=== PATIENT | female | born 1945 | race Hispanic/Latino ===

== ENCOUNTER → 2017-06-02 | Day surgery (SDC) | payer MEDICARE ==
[2017-05-31 09:53] LABS: BASOPHILS # (AUTO) 0.1 (0.0-0.1); BASOPHILS % 0.7 % (0.0-1.0); EOSINOPHILS # (AUTO) 0.1 (0.0-0.4); EOSINOPHILS % 1.3 % (0.0-6.0); HEMATOCRIT 41.3 % (34.2-44.1); HEMOGLOBIN 14.1 g/dL (12.0-16.0); LYMPHOCYTES # (AUTO) 1.3 (1.0-3.2); LYMPHOCYTES % 18.2 % (18.0-39.1); MEAN CORPUSCULAR HEMOGLOBIN 30.9 pg (28-32); MEAN CORPUSCULAR HGB CONC 34.1 g/dL (31-35); MEAN CORPUSCULAR VOLUME 90.4 fL (81-99); MONOCYTES # (AUTO) 0.5 (0.2-0.8); MONOCYTES % 7.5 % (4.4-11.3); NEUTROPHILS # (AUTO) 5.1 (2.1-6.9); NEUTROPHILS % 71.9 % (38.7-80.0); PLATELET COUNT 202 x10e3/uL (140-360); RED BLOOD COUNT 4.57 x10e6/uL (3.6-5.1); RED CELL DISTRIBUTION WIDTH 13.2 % (11.7-14.4)
--- NOTE | 2017-05-31 10:34 | Diagnostic Imaging Report ---
PROCEDURE: X-RAY CHEST, TWO VIEWS COMPARISON: None. INDICATIONS: PRE-OP CARPAL TUNNEL SURGERY FINDINGS: LUNGS: No consolidations or edema. PLEURA: No effusions or pneumothorax. HEART \T\ MEDIASTINUM: The heart is within normal size-limits. Tortuosity of the thoracic aorta. BONES \T\ SOFT TISSUES: No acute findings. Mild degenerative changes of the spine. CONCLUSION: No acute thoracic abnormality. Isaias Gaytan D.O. Dictated by: Isaias Gaytan D.O. on 05/31/2017 at 10:33 Electronically approved by: Isaias Gaytan D.O. on 05/31/2017 at 10:33
[~2017-06-02] MED LIST: ALENDRONATE SOD70 MG PO; BUPIVACAINE HCL 0.5% 10ML MPF VIAL INJ ONE; CEFAZOLIN SOD 1 GM VIAL ONE; CETIRIZINE HCL10 MG PO; DEXAMETHASONE SOD PHOS INJ 4 MG/ML VIAL ONE; FENTANYL CITRATE/PF 100MCG/2 ML INJ ONE; FISH OIL300 MG PO; KETOROLAC TROMETHAMINE 30 MG/ML VIAL ONE; LIDOCAINE HCL 0.5% LOCAL INJ 50 ML VIAL INJ ONE; LIDOCAINE HCL 2% LOCAL INJ 5 ML SDV VIAL INJ ONE; LIDOCAINE HCL-PF 4% 40 MG/1 ML 5ML AMP ONE; MIDAZOLAM HCL 2 MG/2 ML VIAL ONE; MONTELUKAST SOD10 MG PO; OMEPRAZOLE40 MG PO; ONDANSETRON HCL INJ 2 MG/ML VIAL ONE; PROPOFOL IV EMULSION 10 MG/ML 20 ML VIAL ONE; SEVOFLURANE INHAL SOLN 250 ML PEN BTL ONE; SIMVASTATIN40 MG PO; TRAZODONE HCL50 MG PO; VITAMIN D400 UNIT PO
--- OUTSIDE RECORDS SUMMARY | 2017-06-02 09:09 | XMS REPORT ---
Author Author [facility] Address Unknown Phone Unavailable Care Team Providers Care Corporate Travel Coordinator Name Role Phone JORGITO SAMPSON Unavailable Unavailable Problems This patient has no known problems. Allergies, Adverse Reactions, Alerts This patient has no known allergies or adverse reactions. Medications This patient has no known medications. Results Test Description Test Time Test Comments Text Results Atomic Results Result Comments CHEST 2 VIEWS [place] [address] Patient Name: YADI PIMENTEL MR #: [id number] : 1945 Age/Sex: 71/F Req #: [id number] Adm Physician: Ordered by: JORGITO SAMPSON MD Report #: [id number] Location: OR Room/Bed: Procedure: 0219- [id number] DX/CHEST 2 VIEWS Exam Date: 05/31/17 Exam Time : 1010 REPORT STATUS: Signed PROCEDURE: X-RAY CHEST, TWO VIEWS COMPARISON: None. INDICATIONS: PRE-OP CARPAL TUNNEL SURGERY FINDINGS: LUNGS: No consolidations or edema. PLEURA: No effusions or pneumothorax. HEART T MEDIASTINUM: The heart is within normal size- limits. Tortuosity of the thoracic aorta. BONES T SOFT TISSUES: No acute findings. Mild degenerative changes of the spine. CONCLUSION: No acute thoracic abnormality. Marline Gaytan D.O. Dictated by: Marline Gaytan D.O. on 05/31/2017 at 10:33 Electronically approved by: Marline Gaytan D.O. on 05/31/2017 at 10:33 Dictated By: MARLINE GAYTAN DO [id number] Transcribed By: YONY on 05/31/17 1033 COPY TO: JORGITO SAMPSON MD
--- NOTE | 2017-06-02 20:03 | Operative Report ---
DATE OF PROCEDURE: June 02, 2017 PREOPERATIVE DIAGNOSIS: Right carpal tunnel syndrome. POSTOPERATIVE DIAGNOSIS: Right carpal tunnel syndrome. OPERATION/PROCEDURE PERFORMED: Right carpal tunnel release. [employer] ST[employer] ASSOCIATE: None. ANESTHESIA: General endotracheal intubation anesthesia. IV FLUIDS: Per the anesthesia record. BRIEF DESCRIPTION OF THE PATIENT'S OPERATIVE PROCEDURE: Ms. Rodriguez is taken to the operating room and placed in the supine position on the operating table. Following induction of general anesthesia as well as endotracheal intubation, the patient's right upper extremity was examined under anesthesia. She was found to have a normal appearing wrist and hand. The patient's upper extremity was prepped and draped in standard surgical fashion. Case was begun by creating incision along the thenar palmar crease. This incision was carried through skin only. Blunt dissection was used to deepen the incision through the palmar fascia to the level of transverse carpal ligament. The distal edge of transverse carpal ligament was identified and hemostat was placed beneath the ligament. The ligament was then divided in line with the skin incision. The floor of carpal canal was evaluated and there were no abnormalities. The wound was copiously irrigated. The tourniquet was deflated and hemostasis was obtained. The wound was then closed in single layer fashion. Sterile dressings were applied and the patient was then awakened and taken to the post anesthesia care unit in stable condition. Job#: [id number]
== END | disposition home or self-care (01) ==
LOC: OR 09:07
PROVIDERS: ATTEND Specialist
DX: G56.01 Carpal tunnel syndrome, right upper limb (principal); K57.92 Diverticulitis of intestine, part unspecified, without perforation or abscess without bleeding; Z01.810 Encounter for preprocedural cardiovascular examination; Z01.812 Encounter for preprocedural laboratory examination; Z01.818 Encounter for other preprocedural examination
CPT/HCPCS: 36415; 64721; 71046; 85025; 93005; J0690; J1100; J1885; J2001; J2250; J2405